=== PATIENT | male | born 1980 ===

== ENCOUNTER 2018-07-11 13:26 | Emergency (ER) | payer OTHER ==
[2018-07-11 13:34] VITALS: BP 114/75
[2018-07-11] MEDS ORDERED: diPHENhydraMINE IV* 50 MG/ML 1 ml VIAL (BENADRYL) IM ONE (13:51)
[2018-07-11] MEDS ORDERED: Metoclopramide IV* 5 MG/ML 2 ML VIAL ONE (13:51)
--- NOTE | 2018-07-11 13:51 | UC ---
Headache HPI - HPI Summary HPI Summary: This patient is a 37 year old M [place] [facility] [place] a chief complaint of migraine for the last 2.5 days. He states it is different than typical because it is last longer and it is getting worse. He states it came on gradually. The patient rates the pain 4/10 in severity and states it is located in his occipital region. Patient reports n/v. Patient denies visual changes, recent surgeries, fevers, and neck pain. Hx migraines for the last 25 years. Pt took Excedrin migraine at 1100. - History Of Current Complaint Chief Complaint: UCHeadache Stated Complaint: HEADACHES Time Seen by Provider: 07/11/18 13:41 Hx Obtained From: Patient Onset/Duration: Still Present Initially Headache Was: Initial Pain Scale(0-10)= - 8 Currently Pain Is: Current Pain Scale(0-10)= - 4 Pain Intensity: 4 Pain Scale Used: 0-10 Numeric Timing: Constant Location of Headache: Occipital Associated Signs And Symptoms: Positive: Negative - visual changes, recent surgeries, fevers, and neck pain. - Allergies/Home Medications Allergies/Adverse Reactions: Allergies Allergy/AdvReac Type Severity Reaction Status Date / Time Penicillins Allergy Hives Verified 07/11/18 13:34 Home Medications: Home Medications Aspirin/Acetaminophen/Caffeine [Excedrin Migraine Caplet] 2 each PO 07/11/18 [ History] Rizatriptan (NF) [Maxalt(NF)] 5 mg PO 07/11/18 [History] PMH/Surg Hx/FS Hx/Imm Hx Neurological History: Migraine Other History Of: Negative For: Anticoagulant Therapy - Surgical History Surgical History: None - Family History Known Family History: Positive: Other Family History: migraines - Social History Occupation: Employed Full-time Alcohol Use: Rare Substance Use Type: None Smoking Status (MU): Never Smoked Tobacco Review of Systems Gastrointestinal: Vomiting, Nausea Neurological: Headache All Other Systems Reviewed And Are Negative: Yes Physical Exam - Summary Physical Exam Summary: Appearance: Well appearing, no pain distress Skin: warm, dry, reflects adequate perfusion Head/face: normal, temporal arteries are soft Eyes: EOMI, VERNELL, globes soft ENT: mucous membranes moist Neck: supple, non-tender, no meningeal signs Respiratory: CTA, breath sounds present Cardiovascular: RRR, pulses symmetrical Abdomen: non-tender, soft Bowel Sounds: present Musculoskeletal: normal, strength/ROM intact Neuro: normal, sensory motor intact, A&Ox3 Triage Information Reviewed: Yes Vital Signs: Initial Vital Signs Temp 99.2 F 07/11/18 13:31 Pulse 90 07/11/18 13:31 Resp 18 07/11/18 13:31 BP 114/75 07/11/18 13:31 Pulse Ox 100 07/11/18 13:31 Vital Signs Reviewed: Yes Headache Course/Dx - Course Course Of Treatment: Patient states that he has migraines however he points to the occiput and describing his discomfort. It turns out he has chronic occipital headaches which is likely tension-type. He was given oxygen here which greatly reduced his symptoms. He was also given intramuscular Reglan, Benadryl as he had just had aspirin prior. He is discharged in good condition and will follow-up with neurology. Her no high-risk features to this headache. - Differential Dx/Diagnosis Differential Diagnosis/HQI/PQRI: Migraine, Tension Headache Provider Diagnoses: Tension headache Discharge - Sign-Out/Discharge Documenting (check all that apply): Patient Departure All imaging exams completed and their final reports reviewed: No Studies - Discharge Plan Condition: Improved Disposition: HOME Prescriptions: Promethazine TAB* [Phenergan Tab*] 25 mg PO Q6H PRN #20 tab PRN Reason: headache/nausea Patient Education Materials: Tension Headache (ED) Referrals: Radha Putnam MD [Primary Care Provider] - Additional Instructions: Drink plenty of fluids, ibuprofen, caffeine as needed. Return if worse, vomiting, severe headache, new symptoms or other concerns. Follow up with her family doctor early this week. - Billing Disposition and Condition Condition: IMPROVED Disposition: Home - Attestation Statements Document Initiated by Scribe: Yes Documenting Scribe: Eric Sanchez Provider For Whom Sanchez is Documenting (Include Credential): Andre Zazueta MD Scribe Attestation: Eric Jordan scribed for Andre Zazueta MD on 07/11/18 at 1432. Scribe Documentation Reviewed: Yes Provider Attestation: The documentation as recorded by the Eric silver accurately reflects the service I personally performed and the decisions made by me, Andre Zazueta MD
== END 2018-07-11 14:32 | disposition home or self-care (01) ==
LOC: UCEAST 13:26
DX: G44.209 Tension-type headache, unspecified, not intractable (principal); R11.0 Nausea; Z88.0 Allergy status to penicillin
CPT/HCPCS: 96372; 99202; G0463; J1200; J2765

== ENCOUNTER 2018-07-11 15:15 | Emergency (ER) | payer OTHER ==
--- NOTE | 2018-07-11 17:47 | ED ---
Headache - HPI Summary HPI Summary: This patient is a 37 year old M presenting to [facility] with a chief complaint of waxing and waning migraine-like headache that began approximately 2 and a half days ago. The patient rates the pain 5/10 in severity. Symptoms aggravated by upright position and photophobia. Symptoms alleviated by nothing. Patient reports chills, nausea, vomiting, and transient disorientation (normal for his migraines). Patient denies neck pain and neck stiffness. - History Of Current Complaint Chief Complaint: EDHeadache Stated Complaint: HEADACHE Time Seen by Provider: 07/11/18 17:20 Hx Obtained From: Patient Onset/Duration: Sudden Onset, Started days ago, Still Present Initially Headache Was: Moderate Currently Pain Is: Current Pain Scale(0-10)= - 5, Moderate Timing: Constant Character: Migraine Location of Headache: Diffuse Aggravating Factor: Position Change, Bright Lights Allevating Factors: Nothing Associated Signs And Symptoms: Other (Noted In Comments) - Positive chills, nausea, vomiting, and transient disorientation (normal for his migraines). Negative neck pain and neck stiffness - Allergies/Home Medications Allergies/Adverse Reactions: Allergies Allergy/AdvReac Type Severity Reaction Status Date / Time Penicillins Allergy Hives Verified 07/11/18 15:33 PMH/Surg Hx/FS Hx/Imm Hx Previously Healthy: No Endocrine/Hematology History: Denies: Hx Anticoagulant Therapy Neurological History: Reports: Hx Migraine Infectious Disease History: No Infectious Disease History: Denies: Traveled Outside the [place] in Last 30 Days - Family History Known Family History: Positive: Other - Migraines - Social History Occupation: Employed Full-time Lives: With Family Alcohol Use: Rare Hx Substance Use: No Substance Use Type: Reports: None Hx Tobacco Use: No Smoking Status (MU): Never Smoked Tobacco Review of Systems Positive: Chills Positive: Vomiting, Nausea Positive: Other - Negative neck pain and stiffness Neurological: Other - Positive transient disorientation Positive: Headache All Other Systems Reviewed And Are Negative: Yes Physical Exam - Summary Physical Exam Summary: GENERAL: Patient is a well-developed and nourished M who is lying comfortable in the stretcher. Patient is not in any acute respiratory distress. HEAD AND FACE: Normocephalic EYES: PERRLA, EOMI x 2. EARS: Hearing grossly intact. MOUTH: Oropharynx within normal limits. NECK: Supple, trachea is midline, no adenopathy, no JVD, no carotid bruit. CHEST: Symmetric, no tenderness at palpation LUNGS: Clear to auscultation bilaterally. No wheezing or crackles. CVS: Regular rate and rhythm, S1 and S2 present, no murmurs or gallops appreciated. ABDOMEN: Soft, non-tender. Bowel sounds are normal. No abdominal abnormal pulsations. EXTREMITIES: Full ROM in all major joints, no edema, no cyanosis or clubbing. NEURO: Alert and oriented x 3. No acute neurological deficits. Speech is normal and follows commands. Cranial nerves II-XII grossly intact, no dysmetria SKIN: Dry and warm Triage Information Reviewed: Yes Vital Signs On Initial Exam: Initial Vitals Temp Pulse Resp BP Pulse Ox 98 F 92 18 125/78 100 07/11/18 15:27 07/11/18 15:27 07/11/18 15:27 07/11/18 15:27 07/11/18 15:27 Vital Signs Reviewed: Yes Diagnostics - Vital Signs Vital Signs Temp Pulse Resp BP Pulse Ox 07/11/18 17:10 97 114/79 95 07/11/18 17:00 78 97 07/11/18 16:42 83 98 07/11/18 16:40 91 138/81 85 07/11/18 15:27 98 F 92 18 125/78 100 - Laboratory Lab Statement: Any lab studies that have been ordered have been reviewed, and results considered in the medical decision making process. Re-Evaluation - Re-Evaluation First Eval Re-Evaluation Time: 19:11 Change: Improved Comment: Pt reports his symptoms have improved Headache Course/Dx - Course Course Of Treatment: This patient is a 37 year old M presenting to [facility] with a chief complaint of waxing and waning migraine-like headache that began approximately 2 and a half days ago. Physical Exam Findings: No dysmetria. In the ED course the patient was given fluids, toradol, Benadryl, and Reglan. I discussed results with patient and he reports feeling better. He is hemodynamically stable and safe for discharge. Strict return precautions given and he will otherwise follow up with his PCP. - Diagnoses Provider Diagnoses: Migraine Discharge - Sign-Out/Discharge Documenting (check all that apply): Patient Departure - Discharge home - Discharge Plan Condition: Stable Disposition: HOME Patient Education Materials: Migraine Headache (ED) Referrals: Radha Putnam MD [Primary Care Provider] - 3 Days Additional Instructions: Follow up with your primary care physician in 1-3 days RETURN TO THE EMERGENCY DEPARTMENT FOR NEW OR WORSENING SYMPTOMS - Billing Disposition and Condition Condition: STABLE Disposition: Home - Attestation Statements Document Initiated by Scribe: Yes Documenting Scribe: Courtney Loaiza Provider For Whom Scribe is Documenting (Include Credential): Teo Bowen MD Scribe Attestation: I, Courtney Loaiza, scribed for Teo Bowen MD on 07/12/18 at 2340. Scribe Documentation Reviewed: Yes Provider Attestation: The documentation as recorded by the Courtney silver accurately reflects the service I personally performed and the decisions made by me, Teo Bowen MD
[2018-07-11] MEDS ORDERED: Metoclopramide IV* 5 MG/ML 2 ML VIAL IV ONE (17:49)
[2018-07-11] MEDS ORDERED: NS 0.9% 1000 ML* 1,000 ML IV ONE (17:49)
[2018-07-11] MEDS ORDERED: Ketorolac INJ* 30 MG/ML 1 ML VIAL IV PUSH ONE (17:49)
[2018-07-11] MEDS ORDERED: diPHENhydraMINE IV* 50 MG/ML 1 ml VIAL (BENADRYL) IV ONE (17:49)
[2018-07-11 19:27] VITALS: BP 127/81
== END 2018-07-11 19:27 | disposition home or self-care (01) ==
LOC: ED 15:15
DX: G43.909 Migraine, unspecified, not intractable, without status migrainosus (principal); Z88.0 Allergy status to penicillin
CPT/HCPCS: 96374; 96375; 99283; J1200; J1885; J2765